=== PATIENT | male | born 1935 | race Caucasian/White ===

== ENCOUNTER 2017-04-28 15:01 | Outpatient (CLI) | payer MEDICARE ==
[2017-04-28 18:09] LABS: CALCIUM 9.7 mg/dL (8.5-10.3); CREATININE 1.3 mg/dL (0.6-1.2); POTASSIUM 3.9 mmol/L (3.5-5.0)
== END 2017-04-28 15:02 | disposition home or self-care (01) ==
LOC: LAB.F 15:01
PROVIDERS: ATTEND Urology
DX: C61 Malignant neoplasm of prostate (principal)
CPT/HCPCS: 80048; 84153

== ENCOUNTER 2017-05-10 11:32 | Outpatient (CLI) | payer OTHER ==
--- NOTE | 2017-05-10 18:38 | Nuclear Medicine Report ---
EXAM: BONE SCAN EXAM DATE: 05/10/2017 03:06 PM. CLINICAL HISTORY: PROSTATE CANCER. COMPARISON: None. TECHNIQUE: Following the intravenous administration of 31.7 mCi of technetium 99m MDP and an appropri ate delay, a whole-body scan was performed in anterior and posterior projections. Site-specific spot views of the region of interest were obtained in various projections. FINDINGS: Exam Quality: Normal overall osseous radiotracer uptake. Physiological tracer uptake in bilateral col lecting systems. Skull: No focal uptake. Thorax: There is a focus of increased radiotracer uptake within the posterior right mid thorax, at ap proximately the level of the seventh rib. Pelvis: No focal lesions. Spine: There is mildly increased radiotracer uptake within the right mid cervical spine, likely degen erative. IMPRESSION: 1. Small focus of increased radiotracer uptake likely within the posterior lateral right seventh rib. This could represent a remote fracture or less likely focal bony lesion. This could be related to th e patient's prior right lung surgery. Comparison with rib radiography or CT recommended for further e valuation of this finding as indicated. 2. Otherwise negative bone scan. No scintigraphic evidence of diffuse osteoblastic metastatic disease . [facility] Referring Provider Line: [phone] SITE ID: [id number]
== END 2017-05-10 11:33 | disposition home or self-care (01) ==
LOC: DI 11:32
PROVIDERS: ATTEND Urology
DX: C61 Malignant neoplasm of prostate (principal)
CPT/HCPCS: 78306; A9503

== ENCOUNTER 2017-05-11 16:49 | Outpatient (CLI) | payer OTHER ==
--- NOTE | 2017-05-12 09:56 | Ultrasound Report ---
RENAL ULTRASOUND: 05/11/2017 CLINICAL INDICATION: Prostate cancer. TECHNIQUE: Real-time sonographic vascular imaging was performed by the charter coach driver through the kidney s utilizing both color-flow and Doppler spectral analysis. Multiple visitor services representative static images wer e saved for review. FINDINGS: The right kidney measures 11.1 x 4.8 x 3.8 cm. An 1.3 cm cyst is noted. A possible 2 mm no nobstructing calculus is noted. No hydronephrosis, solid renal mass, or perinephric collection is see n. The left kidney measures 11.6 x 4.8 x 4.5 cm. Cysts are noted, the largest measuring 2.5 cm. A possib le tiny nonobstructing left upper pole calculus is noted. No hydronephrosis, solid renal lesion, or p erinephric collection is present. Prevoid, the bladder measures 6.1 x 5.5 x 4.9 cm, yielding a prevoid volume of 87 mL. Bilateral urete ral jets are visualized. Postvoid residual is 23 mL. No free fluid is noted in the pelvis. IMPRESSION: RENAL CORTICAL CYSTS AND POSSIBLE TINY NONOBSTRUCTING CALCULI. A 23 mL POSTVOID RESIDUAL . JOB #: [id number] EXT JOB #:[id number]
== END 2017-05-11 16:50 | disposition home or self-care (01) ==
LOC: DI 16:49
PROVIDERS: ATTEND Urology
DX: C61 Malignant neoplasm of prostate (principal); Q61.02 Congenital multiple renal cysts
CPT/HCPCS: 76770

== ENCOUNTER 2017-10-31 14:54 | Outpatient (CLI) | payer MEDICARE | END 2017-10-31 14:55 | disposition home or self-care (01) | LOC: LAB.F 14:54 | PROVIDERS: ATTEND Urology | DX: C61 Malignant neoplasm of prostate (principal) | CPT/HCPCS: 36415; 84153 ==

== ENCOUNTER 2018-06-27 13:08 | Outpatient (CLI) | payer MEDICARE ==
--- NOTE | 2018-07-02 10:07 | XRAY Report ---
Procedure Date: 06/27/2018 Accession Number: [id number] / [id number] Procedure: FL - Modified Barium Swallow W/SP CPT Code: FULL RESULT: EXAM: MODIFIED BARIUM SWALLOW EXAM DATE: 06/27/2018 01:49 PM. CLINICAL HISTORY: DYSPHAGIA. COMPARISON: Esophagram 05/10/2012 TECHNIQUE: Under the direction of speech pathology, patient swallowed various consistencies of barium under lateral fluoroscopic observation of the neck. Fluoroscopy Time: 50 seconds. Number of Images: 43. FINDINGS IMPRESSION: This study was monitored by Dr. Sauceda. Please see formal speech pathology report for interpretation. [facility]
== END 2018-06-27 13:09 | disposition home or self-care (01) ==
LOC: DI 13:08
PROVIDERS: ATTEND Otolaryngology Otolaryngology/Facial Plastic Surgery
DX: R13.10 Dysphagia, unspecified (principal)
CPT/HCPCS: 74230

== ENCOUNTER 2018-09-06 14:02 | Outpatient (CLI) | payer MEDICARE ==
[2018-09-06 17:44] LABS: PSA FREE 0.01 ng/mL (0.16-2.81)
[2018-09-06 17:45] LABS: PSA TOTAL 0.22 ng/mL (0.000-2.000)
== END 2018-09-06 14:03 | disposition home or self-care (01) ==
LOC: LAB.F 14:02
PROVIDERS: ATTEND Urology
DX: N40.0 Benign prostatic hyperplasia without lower urinary tract symptoms (principal)
CPT/HCPCS: 36415; 84154

== ENCOUNTER 2018-12-12 15:30 | Outpatient (CLI) | payer MEDICARE | END 2018-12-12 15:31 | disposition home or self-care (01) | LOC: LAB.F 15:30 | PROVIDERS: ATTEND Psychiatry & Neurology Neurology | DX: Z13.89 Encounter for screening for other disorder (principal) | CPT/HCPCS: 36415; 82565 ==

== ENCOUNTER 2019-04-04 13:29 | Outpatient (CLI) | payer MEDICARE | END 2019-04-04 13:30 | disposition home or self-care (01) | LOC: LAB.F 13:29 | PROVIDERS: ATTEND Family Medicine | DX: C61 Malignant neoplasm of prostate (principal) | CPT/HCPCS: 36415; 84153 ==

== ENCOUNTER 2019-04-24 11:23 | Outpatient (CLI) | payer MEDICARE ==
--- NOTE | 2019-04-24 17:09 | Nuclear Medicine Report ---
Reason: MALIGNANT NEOPLASM OF PROSTATE Procedure Date: 04/24/2019 Accession Number: [id number] / [id number] Procedure: NM - Bone Whole Body CPT Code: FULL RESULT: EXAM: BONE SCAN EXAM DATE: 04/24/2019 03:58 PM. CLINICAL HISTORY: MALIGNANT NEOPLASM OF PROSTATE. COMPARISON: BONE SCAN 05/10/2017 3:05 PM. No other recent relevant imaging currently available for comparison. TECHNIQUE: Following the intravenous administration of 33.1 mCi of technetium 99m MDP and an appropriate delay, a whole-body scan was performed in anterior and posterior projections. Site-specific spot views of the region of interest were obtained in various projections. FINDINGS: Normal renal radiotracer uptake and bladder activity. Normal soft tissue activity. Overall normal osseous uptake. Stable small focus of uptake at the posterolateral right seventh rib, possibly posttraumatic. Probable degenerative uptake at the mid cervical spine and lower lumbar spine. New small focus of moderate uptake at the medial compartment of the right knee probably degenerative. Otherwise no suspicious focal uptake. IMPRESSION: 1. No definite scintigraphic evidence of osseous metastasis. 2. Stable small focus of uptake at the posterolateral right seventh rib, possibly posttraumatic. 3. New small focus of moderate uptake at the medial compartment of the right knee, probably degenerative. 4. Other multifocal probable degenerative uptake as noted above. [facility]
== END 2019-04-24 11:24 | disposition home or self-care (01) ==
LOC: DI 11:23
PROVIDERS: ATTEND Urology
DX: C61 Malignant neoplasm of prostate (principal)
CPT/HCPCS: 78306

== ENCOUNTER 2021-05-06 14:44 | Outpatient (CLI) | payer MEDICARE | END 2021-05-06 14:45 | disposition home or self-care (01) | LOC: LAB.S 14:44 | PROVIDERS: ATTEND Urology | DX: C61 Malignant neoplasm of prostate (principal) | CPT/HCPCS: 81599; 84153 ==

== ENCOUNTER 2022-04-04 07:29 | Emergency (ER) | payer MEDICARE ==
[2022-04-04 08:09] LABS: BASOPHILS # (AUTO) 0.1 10^3/uL (0.0-0.1); BASOPHILS % (AUTO) 0.7 %; EOSINOPHILS # (AUTO) 0.2 10^3/uL (0.0-0.7); EOSINOPHILS % (AUTO) 2.1 %; HCT - HEMATOCRIT 42.5 % (42.0-52.0); HGB - HEMOGLOBIN 14.8 g/dL (14.0-18.0); LYMPHOCYTES # (AUTO) 3.6 10^3/uL (1.5-3.5); LYMPHOCYTES % (AUTO) 40.5 %; MEAN CORPUSCULAR HEMOGLOBIN 34.9 pg (27.0-31.0); MEAN CORPUSCULAR HGB CONC 34.8 g/dL (32.0-36.0); MEAN CORPUSCULAR VOLUME 100.2 fL (80.0-94.0); MEAN PLATELET VOLUME 9.2 fL (7.4-11.4); MONOCYTES # (AUTO) 0.7 10^3/uL (0.0-1.0); MONOCYTES % (AUTO) 8.3 %; NEUTROPHILS # (AUTO) 4.3 10^3/uL (1.5-6.6); NEUTROPHILS % (AUTO) 48.2 %; PLT - PLATELET COUNT 256 10^3/uL (130-450); RED BLOOD COUNT 4.24 10^6/uL (4.70-6.10); RED CELL DISTRIBUTION WIDTH 13.3 % (12.0-15.0); WHITE BLOOD COUNT 8.9 x10^3/uL (4.8-10.8)
[2022-04-04 08:23] LABS: ALBUMIN/GLOBULIN RATIO 1.3 (1.0-2.2); BILIRUBIN,TOTAL 0.8 mg/dL (0.2-1.0); CREATININE 1.2 mg/dL (0.6-1.2); POTASSIUM 4.1 mmol/L (3.5-5.0); TOTAL PROTEIN 7.2 g/dL (6.7-8.2)
--- NOTE | 2022-04-04 08:25 | XRAY Report ---
PROCEDURE: Chest 1 View X-Ray INDICATIONS: chest pain TECHNIQUE: One view of the chest was acquired. COMPARISON: None FINDINGS: Surgical changes and devices: None. Lungs and pleura: No pleural effusions or pneumothorax. Lungs are clear. Mediastinum: Mediastinal contours appear normal. Heart size is mildly enlarged. Bones and chest wall: No suspicious bony lesions. Overlying soft tissues appear unremarkable. IMPRESSION: No acute pulmonary process. Reviewed by: Brie Madera MD on 04/04/2022 8:24 AM PDT Approved by: Brie Madera MD on 04/04/2022 8:24 AM PDT Station ID: [id number]
--- NOTE | 2022-04-04 08:44 | ED Physician Documentation ---
PD HPI CHEST PAIN - Stated complaint Stated Complaint: CHEST DISCOMFORT - Chief complaint Chief Complaint: Cardiac - History obtained from History obtained from: Patient, Family - History of Present Illness Timing - onset: Enter time (0600), Today Timing - onset during: Rest Timing - duration: Minutes (30) Timing - details: Abrupt onset, Now resolved Quality: Sharp, Pain Location: Substernal, Left chest Radiation: No: Jaw, Neck, Back, Abdominal, Left upper extremity, Right upper extremity Improved by: Rest, ASA Worsened by: No: Exertion, Inspiration, Eating, Movement, Palpation, Position Associated symptoms: Shortness of air, General Weakness, Cough. No: Diaphoresis, Nausea, Vomiting, Feeling faint / dizzy, Palpitations Similar symptoms before: Has not had sx before Recently seen: Not recently seen - Additional information Additional information: Previously well 87-year-old Rodolfo Hudson has a prior history of prostate cancer and hypertension and this morning he awoke with left substernal chest pain that was excruciating and lasting approximately 30 minutes. He felt a little short of breath when this was happening. He denies diaphoresis nausea or vomiting and states that he was able to take a powdered aspirin. The patient does have a chronic cough which is unchanged. He does have some muscle aches and pains. He is vaccinated and boosted against COVID and has not had COVID. Review of Systems Constitutional: reports: Myalgias, Fatigue. denies: Fever, Chills Eyes: denies: Decreased vision Ears: denies: Ear pain Nose: denies: Rhinorrhea / runny nose, Congestion Throat: denies: Sore throat Cardiac: reports: Chest pain / pressure. denies: Palpitations, Pedal edema, Calf pain Respiratory: reports: Dyspnea, Cough GI: denies: Abdominal Pain, Nausea, Vomiting, Constipation, Diarrhea : denies: Dysuria, Frequency Skin: denies: Rash Musculoskeletal: denies: Neck pain, Back pain, Extremity pain Neurologic: denies: Generalized weakness, Focal weakness, Numbness PD PAST MEDICAL HISTORY - Present Medications Home Medications: Ambulatory Orders Medication Instructions Recorded Confirmed Amlodipine Besylate [Norvasc] 10 mg PO DAILY 04/04/22 04/04/22 Atorvastatin [Lipitor] 20 mg PO HS 04/04/22 04/04/22 Enzalutamide [Xtandi] 40 mg PO DAILY PM 04/04/22 04/04/22 Losartan Potassium 25 mg PO DAILY 04/04/22 04/04/22 lisinopriL [Lisinopril] 20 mg PO DAILY 04/04/22 04/04/22 - Allergies Allergies/Adverse Reactions: Allergies Allergy/AdvReac Type Severity Reaction Status Date / Time No Known Drug Allergies Allergy Verified 04/04/22 07:40 PD ED PE NORMAL - Vitals Vital signs reviewed: Yes (hypertnesive mild ) - General General: Alert and oriented X 3, No acute distress, Well developed/nourished - HEENT HEENT: Atraumatic, PERRL, EOMI - Neck Neck: Supple, no meningeal sign, No bony TTP - Cardiac Cardiac: RRR, No murmur - Respiratory Respiratory: No respiratory distress, Clear bilaterally, Other (no chest wall tenderness) - Abdomen Abdomen: Soft, Non tender - Back Back: No CVA TTP, No spinal TTP - Derm Derm: Normal color, Warm and dry, No rash - Extremities Extremities: No deformity, No tenderness to palpate, Normal ROM s pain, No edema, No calf tenderness / cord - Neuro Neuro: Alert and oriented X 3, manager fine 2-12 intact, No motor deficit, No sensory deficit, Normal speech Eye Opening: Spontaneous Motor: Obeys Commands Verbal: Oriented GCS Score: 15 - Psych Psych: Normal mood, Normal affect Results - Vitals Vitals: Vital Signs - 24 hr 04/04/22 04/04/22 04/04/22 07:37 08:09 08:30 Temperature 35.9 C L Heart Rate 65 57 L 57 L Respiratory 20 12 11 L Rate Blood Pressure 150/81 H 140/80 H 169/93 H O2 Saturation 100 100 99 04/04/22 04/04/22 04/04/22 09:02 09:30 10:00 Temperature Heart Rate 60 61 66 Respiratory 15 15 16 Rate Blood Pressure 147/94 H 147/82 H 194/165 H O2 Saturation 100 98 100 Oxygen O2 Source Room air - EKG (time done) 0748 Rate: Rate (enter#) (61) Ischemia: Other (borderline T abnormality with flat T's laterally) Compare to prior EKG: Old EKG unavailable Computer interpretation: Agree with computer - Labs Labs: Laboratory Tests 04/04/22 04/04/22 04/04/22 07:50 07:50 07:50 WBC 8.9 RBC 4.24 L Hgb 14.8 Hct 42.5 MCV 100.2 H MCH 34.9 H MCHC 34.8 RDW 13.3 Plt Count 256 MPV 9.2 Neut # (Auto) 4.3 Lymph # (Auto) 3.6 H Power # (Auto) 0.7 Eos # (Auto) 0.2 Baso # (Auto) 0.1 Absolute Nucleated RBC 0.00 Nucleated RBC % 0.0 D-Dimer Sodium 139 Potassium 4.1 Chloride 104 Carbon Dioxide 23 Anion Gap 12.0 BUN 25 H Creatinine 1.2 Estimated GFR (MDRD) 57 L Glucose 100 Calcium 10.0 Total Bilirubin 0.8 AST 24 ALT 14 Alkaline Phosphatase 83 Troponin I High Sens 10.4 B-Natriuretic Peptide Total Protein 7.2 Albumin 4.0 Globulin 3.2 Albumin/Globulin Ratio 1.3 Lipase 38 Nasal Adenovirus (PCR) Nasal B. parapertussis DNA (PCR) Nasal Coronavir 229E PCR Nasal Coronavir HKU1 PCR Nasal Coronavir NL63 PCR Nasal Coronavir OC43 PCR Nasal Enterovir/Rhinovir PCR Nasal Influenza B PCR Nasal Influenza A PCR Nasal Parainfluen 1 PCR Nasal Parainfluen 2 PCR Nasal Parainfluen 3 PCR Nasal Parainfluen 4 PCR Nasal RSV (PCR) Nasal B.pertussis DNA PCR Nasal C.pneumoniae (PCR) Howard Human Metapneumo PCR Nasal M.pneumoniae (PCR) Nasal SARS-CoV-2 (PCR) 04/04/22 04/04/22 04/04/22 07:50 07:50 09:03 WBC RBC Hgb Hct MCV MCH MCHC RDW Plt Count MPV Neut # (Auto) Lymph # (Auto) Power # (Auto) Eos # (Auto) Baso # (Auto) Absolute Nucleated RBC Nucleated RBC % D-Dimer < 200.0 L Sodium Potassium Chloride Carbon Dioxide Anion Gap BUN Creatinine Estimated GFR (MDRD) Glucose Calcium Total Bilirubin AST ALT Alkaline Phosphatase Troponin I High Sens B-Natriuretic Peptide 109 H Total Protein Albumin Globulin Albumin/Globulin Ratio Lipase Nasal Adenovirus (PCR) NOT DETECTED Nasal B. parapertussis DNA (PCR) NOT DETECTED Nasal Coronavir 229E PCR NOT DETECTED Nasal Coronavir HKU1 PCR NOT DETECTED Nasal Coronavir NL63 PCR NOT DETECTED Nasal Coronavir OC43 PCR NOT DETECTED Nasal Enterovir/Rhinovir PCR NOT DETECTED Nasal Influenza B PCR NOT DETECTED Nasal Influenza A PCR NOT DETECTED Nasal Parainfluen 1 PCR NOT DETECTED Nasal Parainfluen 2 PCR NOT DETECTED Nasal Parainfluen 3 PCR NOT DETECTED Nasal Parainfluen 4 PCR NOT DETECTED Nasal RSV (PCR) NOT DETECTED Nasal B.pertussis DNA PCR NOT DETECTED Nasal C.pneumoniae (PCR) NOT DETECTED Howard Human Metapneumo PCR NOT DETECTED Nasal M.pneumoniae (PCR) NOT DETECTED Nasal SARS-CoV-2 (PCR) DETECTED A - Rads (name of study) chest Radiology: Prelim report reviewed (Impression: No acute pulmonary process.), EMP read indepedently, See rad report Procedures - IVC sono (time) 0840 Bedside IVC sono: IVC measures (cm) (0.92), Dehydration (est 1-2 liter deficit) PD MEDICAL DECISION MAKING - ED course Complexity details: reviewed old records, reviewed results, re-evaluated patient, considered differential, d/w patient, d/w family ED course: 87-year-old male with a prior history of prostate cancer and hypertension presents to the emergency department with an episode of chest pain lasting about 30 minutes at about 6 AM. He has resolved his pain he has not had recurrence of his pain he does have some muscle aches and pains in his shoulder and neck. He presents the [facility] apartment with a normal-appearing electrocardiogram and normal vital signs. He is pain-free. A work-up is undertaken including a D- dimer chest x-ray a respiratory PCR and troponin BNP.All of the studies with the exception of the respiratory PCR are unremarkable. He has positive for COVID and I suspect this is his presenting symptom. He does not appear ill. He is vaccinated and boosted. I have offered emergency use authorization medication to him. He has a contraindication to use of Paxlovid and we are prescribing Molnupiravir. Departure - Departure Disposition: 01 Home, Self Care Clinical Impression: COVID, Dehydration Condition: Stable Instructions: ED Dehydration, COVID-19 [facility] Department of Health, Flu and Cold: Nutrition, Prevention and Treatment Tips Follow-Up: Osman Smith MD [Primary Care Provider] - Comments: Rolo, today it looks like you have COVID. People that are vaccinated and boosted have done well with the strain that is currently circulating and you are expected to do well. We have prescribed the emergency use authorization medication molnupiravir, which will you take and twice a day for 5 days. Follow the instructions for viral uri with additional fluids and treat any fever with tylenol.
[2022-04-04] MEDS ORDERED: SODIUM CHLORIDE 0.9% 1,000 ML IV STA (08:48)
[2022-04-04 10:00] LABS: B. PARAPERTUSSIS- RESP PCR PAN NOT DETECTED; B. PERTUSSIS- RESP PCR PANEL NOT DETECTED; C. PNEUMONIAE- RESP PCR PANEL NOT DETECTED; CORONAVIRUS 229E-RESP PCR NOT DETECTED; CORONAVIRUS HKU1-RESP PCR NOT DETECTED; CORONAVIRUS NL63-RESP PCR NOT DETECTED; CORONAVIRUS OC43-RESP PCR NOT DETECTED; HUMAN METAPNEUMOVIRUS NOT DETECTED; INFLUENZA A- RESP PCR PANEL NOT DETECTED; INFLUENZA B - RESP PCR PANEL NOT DETECTED; M. PNEUMONIAE- RESP PCR PANEL NOT DETECTED; PARAINFLUENZA VIRUS 1 NOT DETECTED; PARAINFLUENZA VIRUS 2 NOT DETECTED; PARAINFLUENZA VIRUS 3 NOT DETECTED; PARAINFLUENZA VIRUS 4 NOT DETECTED; RHINOVIRUS/ENTEROVIRUS NOT DETECTED; RSV- RESP PCR PANEL NOT DETECTED
[2022-04-04 10:03] LABS: SARS-CoV-2 -RESP PCR PANEL DETECTED
[2022-04-04 10:05] VITALS: BP 194/165
[2022-04-04] MEDS ORDERED: MOLNUPIRAVIR PREPACK PO STA (10:13)
[2022-04-04 10:16] LABS: BILIRUBIN,URINE NEGATIVE (NEGATIVE); GLUCOSE, URINE (UA) NEGATIVE (NEGATIVE); KETONES,URINE (UA) NEGATIVE (NEGATIVE); LEUKOCYTE ESTERASE, URINE NEGATIVE (NEGATIVE); NITRITE,URINE NEGATIVE (NEGATIVE); OCCULT BLOOD,URINE NEGATIVE (NEGATIVE); PROTEIN,URINE NEGATIVE (NEGATIVE); UROBILINOGEN,URINE 0.2 (NORMAL) E.U./dL (NORMAL)
[2022-04-04 10:17] LABS: CLARITY,URINE CLEAR (CLEAR)
== END 2022-04-04 10:30 | disposition home or self-care (01) ==
LOC: ED 07:29
DX: U07.1 COVID-19 (principal); E86.0 Dehydration
CPT/HCPCS: 36415; 71045; 80053; 81003; 83690; 83880; 84484; 85025; 85379; 87633; 93005; 96360; 99284; J3490; 81001; 87086

== ENCOUNTER 2023-12-18 13:49 | Outpatient (CLI) | payer MEDICARE | END 2023-12-18 13:50 | disposition home or self-care (01) | LOC: LAB 13:49 | PROVIDERS: ATTEND Urology | DX: C61 Malignant neoplasm of prostate (principal) | CPT/HCPCS: 36415; 84153; 84403 ==

== ENCOUNTER 2024-05-02 14:29 | Outpatient (CLI) | payer OTHER ==
[2024-05-02 15:26] LABS: BASOPHILS % (AUTO) 0.5 %; EOSINOPHILS # (AUTO) 0.2 10^3/uL (0.0-0.7); EOSINOPHILS % (AUTO) 2.1 %; HCT - HEMATOCRIT 47.5 % (42.0-52.0); HGB - HEMOGLOBIN 15.9 g/dL (14.0-18.0); LYMPHOCYTES # (AUTO) 3.1 10^3/uL (1.5-3.5); LYMPHOCYTES % (AUTO) 38.5 %; MEAN CORPUSCULAR HEMOGLOBIN 33.1 pg (27.0-31.0); MEAN CORPUSCULAR HGB CONC 33.5 g/dL (32.0-36.0); MEAN PLATELET VOLUME 9.9 fL (7.4-11.4); MONOCYTES # (AUTO) 0.6 10^3/uL (0.0-1.0); MONOCYTES % (AUTO) 7.7 %; NEUTROPHILS # (AUTO) 4.1 10^3/uL (1.5-6.6); NEUTROPHILS % (AUTO) 51.1 %; PLT - PLATELET COUNT 272 10^3/uL (130-450); WHITE BLOOD COUNT 7.9 x10^3/uL (4.8-10.8)
[2024-05-02 15:38] LABS: ALBUMIN 4.1 g/dL (3.2-5.5); ALBUMIN/GLOBULIN RATIO 1.4 (1.0-2.2); ALKALINE PHOSPHATASE 76 IU/L (42-121); ALT ALANINE AMINOTRANSFERASE 8 IU/L (10-60); AST ASPARTATE AMINOTRANSFERASE 18 IU/L (10-42); BILIRUBIN,TOTAL 0.9 mg/dL (0.2-1.0); BUN - BLOOD UREA NITROGEN 26 mg/dL (6-20); CALCIUM 10.3 mg/dL (8.5-10.3); CARBON DIOXIDE - CO2 26 mmol/L (21-32); CHLORIDE 106 mmol/L (101-111); CREATININE 1.2 mg/dL (0.6-1.3); CRP - C-REACTIVE PROTEIN < 0.5 mg/dL (<0.5); GFR - MDRD 57 (>89); GLUCOSE 106 mg/dL (74-104); POTASSIUM 3.8 mmol/L (3.5-4.5); SODIUM 139 mmol/L (135-145); TOTAL PROTEIN 7.1 g/dL (6.4-8.9)
[2024-05-02 16:15] LABS: FERRITIN 96.9 ng/mL (23.9-336.2)
== END 2024-05-02 14:30 | disposition home or self-care (01) ==
LOC: LAB 14:29
PROVIDERS: ATTEND Family Medicine
DX: R10.9 Unspecified abdominal pain (principal); Z80.0 Family history of malignant neoplasm of digestive organs
CPT/HCPCS: 36415; 80053; 82728; 83993; 85025; 85651; 86140

== ENCOUNTER 2024-06-04 15:20 | Outpatient (CLI) | payer OTHER ==
[2024-06-04] MEDS ORDERED: iohexoL-300 100 ML VIAL ONE (15:29)
[2024-06-04] MEDS ORDERED: DIATRIZOATE MEGLU/DIATRIZO SOD 30 ML BOTTLE PO ONE (15:29)
[2024-06-04] MEDS: iohexoL-300 100 ML VIAL IVP ONE (17:01)
[2024-06-04] MEDS: DIATRIZOATE MEGLU/DIATRIZO SOD 30 ML BOTTLE PO ONE (17:01)
--- NOTE | 2024-06-04 17:14 | CT Report ---
PROCEDURE: Abdomen/Pelvis W INDICATIONS: ABD PAIN CONTRAST: Omni 300 100ml TECHNIQUE: Oral contrast was given in this patient. After the administration of intravenous contrast, a CT scan of the abdomen and pelvis was performed. Images were recorded and evaluated at appropriate window set tings. Reformats: coronal and sagittal. For radiation dose reduction, the following was used: automat ed exposure control, adjustment of mA and/or kV according to patient size. COMPARISON: None. FINDINGS: Image quality: Diagnostic. Lower chest: Unremarkable. Liver: No solid mass. Gallbladder: Within normal limits. Biliary tree: No intrahepatic or extrahepatic dilation, accounting for age. Spleen: No splenomegaly. Pancreas: No pancreatic ductal dilation. Adrenals: No adrenal nodule. Kidneys and ureters: No hydronephrosis. No renal cystic lesion which requires follow up. Several simp le bilateral renal cysts are seen. No solid mass. Stomach, bowel and peritoneum: No gastric or small bowel dilation. No abnormal wall thickening. No pa thologic free fluid. The cecum is low-lying. No appendix can be seen, either normal or abnormal. No focal right lower quadrant inflammatory change s are seen. Lymph nodes: No central or retroperitoneal adenopathy. Vessels: No infrarenal aortic aneurysm. Patent portal vein. Atherosclerotic calcification is seen. PELVIS Reproductive organs: Unremarkable. Bladder: Moderate circumferential bladder wall thickening can be seen. No focal bladder mass is seen. Pelvic lymph nodes: No pelvic adenopathy by size criteria. Bones: No aggressive osseous abnormality. There is a remote L5 compression deformity, without acute f eatures. Menorrhagia Other: There is a small fat-containing periumbilical hernia present. IMPRESSION: No imaging explanation is found for the patient's presenting symptoms. Moderate circumferential bladder wall thickening is seen. Bladder outlet is suspected in a male patie nt of this age. Additional findings: Several simple bilateral renal cysts Remote L5 compression fracture Reviewed by: Ki Asencio MD on 06/04/2024 4:13 PM AKSARINA Approved by: Ki Asencio MD on 06/04/2024 4:13 PM AKDT Station ID: [id number]
== END 2024-06-04 15:21 | disposition home or self-care (01) ==
LOC: DI 15:20
PROVIDERS: ATTEND Family Medicine
DX: R10.9 Unspecified abdominal pain (principal); Z80.0 Family history of malignant neoplasm of digestive organs
CPT/HCPCS: 74177; Q9963; Q9967

== ENCOUNTER 2024-07-10 14:16 | Outpatient (CLI) | payer OTHER | END 2024-07-10 14:17 | disposition home or self-care (01) | LOC: LAB 14:16 | PROVIDERS: ATTEND Urology | DX: C61 Malignant neoplasm of prostate (principal) | CPT/HCPCS: 36415; 84153; 84403 ==